=== PATIENT | male | born 1935 | race African-American/Black ===

== ENCOUNTER 2017-08-13 14:03 | Emergency (ER) | payer MEDICARE, OTHER, SELFPAY ==
[2017-08-13 14:05] VITALS: BP 215/93; PULSE 145; RESP 20; O2SAT 97
--- NOTE | 2017-08-13 14:14 | ED.ARRPALP ---
HPI - Arrhythmia/Palpitations General Chief Complaint: Arrhythmia/Palpitations Stated Complaint: RAPID HEART RATE Time Seen by Provider: 08/13/17 14:14 Source: patient and family Mode of arrival: ambulatory Limitations: no limitations History of Present Illness HPI narrative: Patient presents to the emergency department today from the [facility] when they noticed him to be in a rapid and irregular heart rhythm. He has no history of AFib and had a pacemaker placed 2 years ago. He is not anticoagulated. He is asymptomatic and does not even feel palpitations let alone chest pain or shortness of breath. He is not dizzy nor weak or lightheaded. He has a PICC line in place and was set to receive his 6th and final round of chemotherapy for prostate cancer MD complaint: rapid heart beat Onset (ago): unknown Duration: constant Severity: mild Associated symptoms: denies other symptoms Related Data Home Medications Medication Instructions Recorded Confirmed insulin glargine [Basaglar KwikPen 1 dose SQ DIRECTED #0 03/25/17 08/13/17 U-100 Insulin] aspirin 81 mg PO DAILY 08/13/17 08/13/17 carvedilol 3.125 mg PO DAILY 08/13/17 08/13/17 lisinopril 10 mg PO DAILY 08/13/17 08/13/17 metformin 500 mg PO DAILY 08/13/17 08/13/17 Previous Rx's Medication Instructions Recorded apixaban [Eliquis] 2.5 mg PO BID #30 tab 08/13/17 Allergies Allergy/AdvReac Type Severity Reaction Status Date / Time No Known Drug Allergies Allergy Verified 07/21/17 12:45 Review of Systems Review of Systems All systems reviewed & are unremarkable except as noted in HPI and below Constitutional Denies chills, Denies fever(s), Denies lethargy and Denies weakness Eyes Denies change in vision, Denies eye discharge, Denies irritation and Denies loss of vision ENT Ears, Nose, Mouth, and Throat: Denies change in voice, Denies neck pain and Denies sore throat Cardiovascular Denies chest pain, Denies irregular heart rhythm, Denies lightheadedness, Denies palpitations, Denies dyspnea, Denies dyspnea on exertion and Denies orthopnea Respiratory Denies cough, Denies dyspnea, Denies dyspnea on exertion and Denies wheezing Gastrointestinal Gastrointestinal: Denies abdominal pain, Denies change in bowel habits, Denies diarrhea, Denies nausea and Denies vomiting Genitourinary Denies hematuria, Denies flank pain, Denies urinary incontinence and Denies urinary urgency Musculoskeletal Denies neck pain Integumentary/Breasts Denies pruritus, Denies erythema, Denies rash and Denies wounds Neurologic Denies confusion, Denies loss of vision and Denies weakness Psychiatric Denies anxiety, Denies confusion, Denies depression, Denies homicidal ideation and Denies suicidal ideation Endocrine Denies palpitations Hematologic/Lymphatic Denies easy bruising Allergic/Immunologic Denies wheezing PFSH Medical History Atrial fibrillation (Acute) Diabetes (Acute) HTN (hypertension) (Acute) Social History Smoking Status: Never smoker Exam Narrative Exam Narrative: Pleasant 81-year-old male in no obvious distress Initial Vital Signs Initial Vital Signs: Vital Signs Pulse Rate 145 H 08/13/17 14:05 Respiratory Rate 20 08/13/17 14:05 Blood Pressure 215/93 H 08/13/17 14:05 Pulse Oximetry 97 08/13/17 14:05 Const General: cooperative and well developed Nutritional Appearance: well nourished Orientation: alert, awake, oriented x3 and not confused [facility] Head: normocephalic and atraumatic Ears: external ears normal and TM's normal bilaterally Nose: external nose normal and No nasal discharge Face and sinus: sinuses nontender, face symmetric, no sinus tenderness and No dry mucous membranes Mouth: oral mucosae normal and moist mucous membranes Teeth and gingiva: dentition normal Throat: tonsils normal and uvula midline Resp Effort & Inspection: normal respiratory effort, able to speak in complete sentences, no respiratory distress and no use of accessory muscles Auscultation: clear to auscultation bilaterally, no rales, no rhonchi and no wheezes Cardio Rate: tachycardic Rhythm: abnormal rhythm Heart Sounds: no click, no gallops, no murmurs and no rubs Pulses: normal peripheral pulses GI Inspection: non-distended Palpation: soft, no hepatosplenomegaly, No guarding, No pulsatile mass and No tender Auscultation: normal bowel sounds Back/Spine/Pelvis Back: No CVA tenderness Cervical Spine: cervical ROM normal and No pain with cervical ROM Thoracic/Lumbar Spine: thoracic and lumbar spine normal to inspection Neuro General: alert, oriented x3, gait normal and no focal motor deficits Speech: speech normal Course Orders Ordered: ED Orders 08/13/17 14:15 XR chest 1V Stat Basic Metabolic Panel Stat Complete Blood Count AUTO DIFF Stat Magnesium Stat Thyroid Stimulating Hormone Stat Troponin with CK Cardiac Panel Stat EKG-12 Lead Stat Discontinued Medications Carvedilol (Coreg) 6.25 mg PO NOW ONE Stop: 08/13/17 15:47 Last Admin: 08/13/17 15:59 Dose: 6.25 mg Diltiazem HCl (Cardizem) 10 mg IV NOW ONE Stop: 08/13/17 14:45 Last Admin: 08/13/17 14:54 Dose: 10 mg Sodium Chloride (Normal Saline 0.9%) 1,000 mls @ 150 mls/hr IV CONT SANDER Last Infusion: 08/13/17 16:02 Dose: 150 mls/hr Admin: 08/13/17 14:54 Dose: 150 mls/hr Reevaluation(s) Reevaluation #1: Patient remains asymptomatic. Cardizem 10 mg IV push has kept his heart rate in the 90s for about an hour now Time: 15:50 Consultations Consultation #1: Call to Cardiology at [facility]. I have discussed the case and they recommend increasing his beta-tong and adding Eliquis at 2.5 mg p.o. b.i.d. Time: 15:50 Vital Signs - 8 hr 08/13/17 14:05 08/13/17 15:06 08/13/17 15:30 Pulse Rate 145 H 94 H 42 L Respiratory Rate 20 22 18 Blood Pressure 215/93 H Blood Pressure [Right Arm] 151/61 H 140/63 H Pulse Oximetry 97 96 95 08/13/17 15:59 08/13/17 16:04 Pulse Rate 98 H 98 H Respiratory Rate 19 Blood Pressure 140/83 H 140/63 H Blood Pressure [Right Arm] Pulse Oximetry 97 MDM - Arrhythmia/Palpitations Differential Diagnosis Differential diagnosis: Likely palpitations, anxiety, sinus tachycardia, artial fibrillation and artial flutter Medical Records Attestation: I reviewed the patient's medical records. Lab Data Attestation: I reviewed the patient's lab results. Result diagrams: 08/13/17 14:15 08/13/17 14:15 Lab Results 08/13/17 08/13/17 08/13/17 Range/Units 14:15 14:15 14:15 WBC 8.7 (4.5-11.0) X10^3/uL RBC 4.03 L (4.5-5.9) X10^6/uL Hgb 10.4 L (13.5-17.5) g/dL Hct 32.1 L (41-53) % MCV 79.8 L (80-100) fL MCH 25.8 L (26-34) PG MCHC 32.3 (30-36) % RDW 17.9 H (11.6-14.8) % Plt Count 246 (150-400) X10^3/uL Neut % (Auto) 64.0 (50-75) % Lymph % (Auto) 21.7 L (25-40) % Kay % (Auto) 12.4 (3-14) % Eos % (Auto) 1.4 L (2-4) % Baso % (Auto) 0.5 (0-2) % Neut # (Auto) 5600 (3522-9216) /uL Sodium 137 (137-145) mmol/L Potassium 4.0 (3.4-5.1) mmol/L Chloride 99 (98-107) mmol/L Carbon Dioxide 25 (22-32) mmol/L BUN 22 H (9-20) mg/dL Creatinine 1.10 (0.66-1.25) mg/dL Estimated GFR > 60.0 (>60) mL/min BUN/Creatinine Ratio 20.0 (6-22) Glucose 221 H (80-110) mg/dL Calcium 9.3 (8.4-10.2) mg/dL Magnesium 1.7 (1.6-2.3) mg/dL Total Creatine Kinase 139 (55-170) U/L CK-MB (CK-2) 0.82 (<2.37) ng/mL CK-MB (CK-2) Rel Index 0.6 L (1.5-5.0) % Troponin I 0.014 (0.01-0.034) ng/mL TSH 2.04 (0.47-4.68) uIU/mL Imaging Data Chest x-ray: Attestation: I personally reviewed and interpreted this imaging study as follows: Radiologist's impression: PROCEDURE: XR CHEST 1V INDICATIONS: new onset Afib TECHNIQUE: One view of the chest was acquired. COMPARISON: None. FINDINGS: Surgical changes and devices: Pacemaking device and dual chamber leads normal. Lungs and pleura: No pleural effusions or pneumothorax. Lungs are clear. Mediastinum: Mediastinal contours appear normal. Heart size is normal. Bones and chest wall: No suspicious bony lesions. Overlying soft tissues appear unremarkable. IMPRESSION: Mildly reduced inspiratory volume, pacemaker appears normal, no edema found. Dictated by: Kyle Khoury M.D. on 08/13/2017 at 15:15 Approved by: Kyle Khoury M.D. on 08/13/2017 at 15:16 ECG Data Attestation: I personally reviewed and interpreted this ECG as follows: Prior ECG tracings: not available for review Interpretation: Rapid AFib with left bundle branch block and occasional pacing. Rate in the 150s MDM Narrative Medical decision making narrative: CHADS-VASc score or 4 but no anticoagulation despite known history of AFib LBBB. Discharge Plan Departure Patient Disposition: Home, Self-Care Clinical Impression: Atrial fibrillation Discharge Date/Time: 08/13/17 16:05 Interventions: ED Discharge Assessment Last Done: 08/13/17 16:04 Instructions: DI for Atrial Fibrillation Activity Restrictions/Additional Instructions: *You have been diagnosed with [ atrial fibrillation ] *What to do: *Take medications as directed. Also, please increase your carvedilol from 3.125 mg p.o. daily to 6.25 mg p.o. daily *Follow up with your primary care provider in 2-3 days *Return to ER if you should have any new, worsening or concerning symptoms Prescriptions: New apixaban [Eliquis] 2.5 mg tablet 2.5 mg PO BID Qty: 30 RF: 0 No Action insulin glargine [Basaglar KwikPen U-100 Insulin] 100 UNIT/1 ML insulin pen 1 dose SQ DIRECTED Qty: 0 RF: 0 aspirin 81 mg Tablet,Delayed Release (Dr/Ec) 81 mg PO DAILY RF: 0 carvedilol 3.125 mg Tablet 3.125 mg PO DAILY RF: 0 lisinopril 10 mg Tablet 10 mg PO DAILY RF: 0 metformin 500 mg Tablet Extended Release 24 Hr 500 mg PO DAILY RF: 0
[2017-08-13 14:36] LABS: Add Manual Diff / Slide Review NO; Basophils Percent Auto 0.5 % (0-2); Eosinophils Percent Auto 1.4 % (2-4); Hematocrit 32.1 % (41-53); Hemoglobin 10.4 g/dL (13.5-17.5); Lymphocytes Percent Auto 21.7 % (25-40); Mean Corpuscular HGB Conc 32.3 % (30-36); Mean Corpuscular Hemoglobin 25.8 PG (26-34); Mean Corpuscular Volume 79.8 fL (80-100); Monocytes Percent Auto 12.4 % (3-14); Neutrophils Absolute Auto 5600 /uL (3000-5900); Platelet Count 246 X10^3/uL (150-400); Red Blood Cell Count 4.03 X10^6/uL (4.5-5.9); Red Cell Distribution Width 17.9 % (11.6-14.8); White Blood Cell Count 8.7 X10^3/uL (4.5-11.0)
[2017-08-13 14:37] LABS: Blood Urea Nitrogen 22 mg/dL (9-20); Calcium 9.3 mg/dL (8.4-10.2); Carbon Dioxide 25 mmol/L (22-32); Chloride 99 mmol/L (98-107); Creatine Kinase 139 U/L (55-170); Estimated Glomerular Filt Rate > 60.0 mL/min (>60); Glucose 221 mg/dL (80-110); HEMOLYSIS < 15 (0-50); Magnesium 1.7 mg/dL (1.6-2.3); Sodium 137 mmol/L (137-145)
[2017-08-13 14:49] LABS: Troponin I 0.014 ng/mL (0.01-0.034)
[2017-08-13 14:52] LABS: CKMB % Relative Index 0.6 % (1.5-5.0); Creatine Kinase MB 0.82 ng/mL (<2.37)
[2017-08-13] MEDS: SODIUM CHLORIDE 0.9% 1,000 ML 150 ML IV (14:54)
[2017-08-13] MEDS: dilTIAZem 25 MG/5 ML SDV 10 MG IV (14:54)
[2017-08-13 15:06] VITALS: BP 151/61; PULSE 94; RESP 22; O2SAT 96
[2017-08-13 15:30] VITALS: BP 140/63; PULSE 42; RESP 18; O2SAT 95
--- NOTE | 2017-08-13 15:43 | PC.NURSE ---
Calls out to [facility] cardiology for pt info. Stable. HR from 150 to 94 after meds
[2017-08-13 15:59] VITALS: BP 140/83; PULSE 98
[2017-08-13] MEDS: CARVEDILOL 6.25 MG TABLET PO (15:59)
[2017-08-13 16:04] VITALS: BP 140/63; PULSE 98; RESP 19; O2SAT 97
--- NOTE | 2017-08-13 16:05 | PC.NURSE ---
PT and family understand dc inst./meds. Picc line flushed. PT states no heparin
[2017-08-13 16:32] LABS: Thyroid Stimulating Hormone 2.04 uIU/mL (0.47-4.68)
== END 2017-08-13 16:05 | disposition home or self-care (01) ==
PROVIDERS: Emergency Provider Emergency Medicine; PCP Family Medicine
DX: C61 Malignant neoplasm of prostate (principal); D64.9 Anemia, unspecified; I48.91 Unspecified atrial fibrillation
CPT/HCPCS: 36415; 36591; 71045; 80048; 80053; 82550; 82553; 83735; 84153; 84443; 84484; 85025; 93005; 96361; 96374; 99215; 99283; 99285

== ENCOUNTER → 2017-08-20 14:30 | Outpatient (CLI) | payer MEDICARE, OTHER, SELFPAY ==
--- NOTE | 2017-08-20 | DI.US.S_ITS ---
PROCEDURE: US PERIPH VENOUS UP EXTREM RT INDICATIONS: RIGHT ARM EDEMA TECHNIQUE: Real-time imaging, as well as color and pulse Doppler interrogation, was performed of the right upper extremity deep veins from the inferior neck to the antecubital fossa. COMPARISON: None. FINDINGS: Partial thrombus is visualized within the right subclavian, axillary and brachial vein. The internal jugular, cephalic and basilic veins are patent. Right PICC also is noted. IMPRESSION: Positive for DVT with partial occlusive thrombus involving the right subclavian, axillary and brachial veins. Savannah Morin given results by the roller printing supervisor at 1518 hrs. 08/20/17 Dictated by: Arley WHALEN Interpreted: Ethan Mcknight MD on 08/20/2017 at 15:29 Approved by: Ethan Mcknight M.D. on 08/20/2017 at 17:12
== END ==
PROVIDERS: PCP Family Medicine; Visit Provider Nurse Practitioner Gerontology
DX: I82.621 Acute embolism and thrombosis of deep veins of right upper extremity (principal); C61 Malignant neoplasm of prostate; M79.89 Other specified soft tissue disorders; D50.9 Iron deficiency anemia, unspecified
CPT/HCPCS: 93971; 96365; 96402; J1756; J9217

== ENCOUNTER → 2017-09-03 | Outpatient (CLI) | payer MEDICARE, OTHER, SELFPAY ==
--- NOTE | 2017-09-03 09:24 | DI.NM.S_ITS ---
PROCEDURE: [place] BONE SCAN WHOLE BODY RADIOPHARMACEUTICAL: 22.3 mCi Tc-99m MDP IV. INDICATIONS: PROSTATE CANCER TECHNIQUE: Delayed whole-body scintigrams were obtained approximately 3-4 hours after intravenous injection of radiotracer. COMPARISON: [facility], CT, ABDOMEN/PELVIS WITH CONTRAST, 03/25/2017, 19:33. [facility], CT, CT ABDOMEN W CON, 09/03/2017, 10:12. [place], [place], BONE SCAN WHOLE BODY, 04/13/2017, 13:04. FINDINGS: There are multiple foci of increased activity involving the left skull base, sternum, scapulae bilaterally, cervical, thoracic and lumbar spine, sacrum, multiple ribs bilaterally, bony pelvis bilaterally, consistent with osseous metastases. Osseous lesions are overall stable compared with last exam on 03/25/2017. There are foci of increased periarticular activity involving shoulders bilaterally, elbows bilaterally, wrists bilaterally, hips bilaterally, knees bilaterally, ankles and feet bilaterally, compatible with degenerative/arthritic changes. There are 2 kidneys, normal in size and position. There is normal soft tissue uptake. IMPRESSION: Widespread osseous metastatic disease, overall stable compared to the last exam. Dictated by: Ethan Mcknight M.D. on 09/03/2017 at 15:26 Approved by: Ethan Mcknight M.D. on 09/04/2017 at 9:38
--- NOTE | 2017-09-03 10:11 | DI.CT.S_ITS ---
PROCEDURE: CT ABDOMEN W CON INDICATIONS: PROSTATE CANCER TECHNIQUE: After the administration of oral and intravenous contrast, 5 mm thick sections acquired from the diaphragms to the iliac crests. 5 mm thick coronal and sagittal reformats were acquired. For radiation dose reduction, the following was used: automated exposure control, adjustment of mA and/or kV according to patient size. COMPARISON: [facility], CT, ABDOMEN/PELVIS WITH CONTRAST, 03/25/2017, 19:33. [facility], [place], BONE SCAN WHOLE BODY, 04/13/2017, 13:04. [facility], [place], XR CHEST 1V, 08/13/2017, 14:29. FINDINGS: Image quality: Excellent. Lung bases: AICD partially imaged. Lung bases show linear scarring/atelectasis, right greater than left. No pulmonary nodules seen. Heart size is normal. Solid organs: Liver is normal in size and enhancement. There are 3 or 4 hypodensities in the liver, right and left lobes, unchanged. Gallbladder appears normal. Biliary system is non dilated. Pancreas enhances normally. Spleen is normal in size and enhancement. No adrenal nodules. Kidneys are normal in size, without hydronephrosis. Peritoneum and bowel: Contrast enhanced bowel loops appear normal in caliber. No free fluid or air. Nodes and vessels: No retroperitoneal or mesenteric adenopathy by size criteria. Atheromatous aorta and inferior vena cava are normal in size. Bones: Innumerable foci of mixed lytic and sclerotic lesions are present throughout the spine and visualized portion of the pelvis. No vertebral body compression fractures. Miscellaneous: No ventral hernias. IMPRESSION: 1. Widespread metastatic bone disease from known prostate cancer, compatible with prior bone imaging, repeat nuclear bone scan scheduled. 2. Small hypodense lesions within the right and left lobes of liver are unchanged in remain indeterminate, most likely hepatic cysts or hemangiomas. No other soft tissue or marie findings to suspect additional metastatic disease. 3. Permanent transvenous pacemaker/defibrillator. 4. Atheromatous vascular disease. Dictated by: Arnol Cardenas M.D. on 09/03/2017 at 10:55 Approved by: Arnol Cardenas M.D. on 09/03/2017 at 11:05
== END ==
LOC: CT 09:23
PROVIDERS: PCP Family Medicine; Visit Provider Internal Medicine Hematology & Oncology
DX: C61 Malignant neoplasm of prostate (principal); Z53.9 Procedure and treatment not carried out, unspecified reason
CPT/HCPCS: 74160; 78306; A9503; Q9967

== ENCOUNTER 2017-09-17 15:02 | Day surgery (SDC) | payer MEDICARE, OTHER, SELFPAY ==
[2017-09-11 14:15] VITALS: BMI 19.5
--- NOTE | 2017-09-17 | DI.RAD.S_ITS ---
PROCEDURE: XR CHEST 1V INDICATIONS: PORT A CATH PLACEMENT TECHNIQUE: One view of the chest was acquired. COMPARISON: [facility], [place], XR CHEST 1V, 08/13/2017, 14:29. FINDINGS: Surgical changes and devices: Right chest wall Port-A-Cath is noted. Tip of Port-A-Cath projects over the mid SVC. AICD is stable. Lungs and pleura: No pleural effusions or pneumothorax. Lungs are clear. Mediastinum: Mediastinal contours appear normal. Heart size is normal. Bones and chest wall: No suspicious bony lesions. Overlying soft tissues appear unremarkable. IMPRESSION: Status post placement of right chest wall Port-A-Cath. Dictated by: Jennifer Balbuena MD, PhD on 09/17/2017 at 18:24 Approved by: Jennifer Balbuena MD, PhD on 09/17/2017 at 18:24
--- NOTE | 2017-09-17 15:18 | PM.PREOP ---
Pre-operative Note Interval Note Pre-op Check: History & Physical Reviewed by Physician and Exam Performed
[2017-09-17 15:25] VITALS: BMI 19.5
[2017-09-17] MEDS: LACTATED RINGERS 1,000 ML 42 ML IV (15:25)
[2017-09-17 15:50] VITALS: BMI 19.5
[2017-09-17] MEDS: CEFAZOLIN 2 GM/100 ML FROZ.PIGGY IV (17:08)
--- NOTE | 2017-09-17 17:28 | SUR.OPER ---
Supine on padded OR bed, head on gel donut, right arm padded and tucked at side, left arm secured on 90 degree padded arm rest. legs uncrossed, safety belt at thigh, tape over blanket over lower legs .
[2017-09-17 17:58] VITALS: BP 132/78; PULSE 87; RESP 16; TEMP 36.4; O2SAT 94
[2017-09-17 18:03] VITALS: BP 136/83; PULSE 86; RESP 16; O2SAT 94
[2017-09-17] MEDS: HEPARIN 5,000 UNIT, SODIUM CHLORIDE 0.9% 50 ML IV (18:03)
[2017-09-17 18:08] VITALS: BP 167/90; PULSE 83; RESP 16; O2SAT 94
[2017-09-17] MEDS: LIDOCAINE 1% 20 ML INJ INJ (18:08)
--- NOTE | 2017-09-17 18:13 | PM.OP.1 ---
Operative Date/Time/Diagnoses - Date of procedure: 09/17/17 Time of procedure: 18:00 Pre-op diagnosis: Prostate cancer Post-op diagnosis: same Procedure & Clinicians Procedure: Placement of right subclavian Port-A-Cath Same procedure as scheduled: Yes Indications: Need for IV access for chemotherapy Surgeon: Joselito Raines Click Yes if Unassisted: Yes Anesthesia Type: MAC +/- Operative Notes Findings: Tip in the SVC. No evidence of pneumothorax. Closure Type: primary Specimen(s): none sent Implants & Drains: Low-profile Port-A-Cath Estimated Blood Loss (mL): 5 Blood products transfused: none Procedure in detail: The patient was placed supine on the operating room table and underwent mac anesthesia. He was prepped and draped in the usual fashion. Local anesthetic was infiltrated in a field block fashion beneath the right clavicle. Transverse incision was made in needle inserted on the 2nd attempt into the subclavian vein. Guidewire was passed and the needle removed. Under fluoroscopy the wire was noted to be in the neck. With the manipulation we were able to get it to go into the superior vena cava. The port and catheter were connected and tapered to appropriate length. The port was placed in the pocket that had been created in the infraclavicular fossa. A dilator and introducer were passed over the guidewire. The guidewire and the dilator were removed leaving the introducer in place. The catheter was passed through the introducer which was then peeled away leaving the catheter in the SVC. The port was secured to the chest wall with 2 0 silk. It was then aspirated and flushed with heparinized saline. The subcu was closed with interrupted 3 0 Polysorb and the skin was closed running for Polysorb subcuticular stitch and Dermabond. Dressing was applied the patient was taken to the recovery area in good condition. A chest x-ray performed there revealed that the tip was in the SVC and there is no evidence of pneumothorax. Complications: none Condition: stable Disposition: PACU
[2017-09-17 18:24] VITALS: BP 168/83; PULSE 85; RESP 16; TEMP 36.2; O2SAT 93
[2017-09-17 18:35] VITALS: BP 168/87; PULSE 86; RESP 16; O2SAT 96
== END 2017-09-17 18:47 | disposition home or self-care (01) ==
PROVIDERS: PCP Family Medicine; Visit Provider Specialist
PROC: (CPT 36561; principal; 2017-09-17 14:30)
DX: C61 Malignant neoplasm of prostate (principal); Z45.2 Encounter for adjustment and management of vascular access device; Z95.0 Presence of cardiac pacemaker; I44.7 Left bundle-branch block, unspecified; I48.91 Unspecified atrial fibrillation; N18.3 Chronic kidney disease, stage 3 (moderate); I12.9 Hypertensive chronic kidney disease with stage 1 through stage 4 chronic kidney disease, or unspecified chronic kidney disease; E78.00 Pure hypercholesterolemia, unspecified; I48.0 Paroxysmal atrial fibrillation; I50.22 Chronic systolic (congestive) heart failure
CPT/HCPCS: 36561; 71045; 76000; C1788; J0690; J1644; J2704

== ENCOUNTER → 2017-12-03 09:21 | Outpatient (CLI) | payer MEDICARE, OTHER, SELFPAY ==
--- NOTE | 2017-12-03 09:24 | DI.NM.S_ITS ---
PROCEDURE: [place] BONE SCAN WHOLE BODY RADIOPHARMACEUTICAL: 21.2 mCi Tc-99m MDP IV. INDICATIONS: PROSTATE CANCER TECHNIQUE: Delayed whole-body scintigrams were obtained approximately 3-4 hours after intravenous injection of radiotracer. Anterior and posterior views were acquired from vertex to feet. COMPARISON: [facility], CT, CT CHEST ABD PEL W CON, 12/03/2017, 10:32. [place], [place], BONE SCAN WHOLE BODY, 04/13/2017, 13:04. [place], [place], [place] BONE SCAN WHOLE BODY, 09/03/2017, 13:22. FINDINGS: Numerous foci of abnormal radiotracer uptake are seen, particularly involving the ribs, which are greater on the right posteriorly than elsewhere. Abnormal foci of radiotracer uptake also be seen within the L3 and L5 vertebral bodies. Abnormal uptake can be seen within the sternum and the thoracic spine. Abnormal foci are also seen within the scapulas. Abnormal radiotracer uptake is seen within the pelvis, particularly the medial iliac wings and more prominent on the right than on the left. More subtle foci can be seen within the cervical spine and skull base. These abnormal foci of radiotracer uptake are more prominent than on the prior examination dated 09/03/17. Mild, symmetric uptake can be seen within several joints, which is attributed to age-appropriate degenerative change. No abnormal soft tissue uptake is seen. The kidneys demonstrate normal positions. IMPRESSION: Interval progression of this patient's previously seen bony metastatic disease. Dictated by: Gael Lopez M.D. on 12/03/2017 at 14:50 Approved by: Gael Lopez M.D. on 12/03/2017 at 14:53
--- NOTE | 2017-12-03 10:06 | DI.CT.S_ITS ---
PROCEDURE: CT CHEST ABD PEL W CON INDICATIONS: Prostate cancer surveillance TECHNIQUE: After the administration of oral and intravenous contrast, 5 mm thick sections acquired from the lung apices to the symphysis. 5 mm coronal and sagittal reformats were performed, with additional 7 mm coronal MIP reformats through the lungs. For radiation dose reduction, the following was used: automated exposure control, adjustment of mA and/or kV according to patient size. COMPARISON: [facility], CT, ABDOMEN/PELVIS WITH CONTRAST, 03/25/2017, 19:33. [facility], CT, CT ABDOMEN W CON, 09/03/2017, 10:12. [place], [place] BONE SCAN WHOLE BODY, 09/03/2017, 13:22. [place] BONE SCAN WHOLE BODY, 12/03/2017, 12:39. FINDINGS: Image quality: There is streak artifact from patient's left chest wall AICD.. CHEST: Lungs and pleura: There is linear scarring redemonstrated in the lung bases. There are 2 small nonspecific nodules medially in the left upper lobe measuring approximate 2 mm on series 3 image 17 and 20. No pleural effusions or pneumothorax. Central and peripheral airways appear patent and normal in caliber. Mediastinum: Heart size is normal. There is a small pericardial effusion anteriorly. A left chest wall AICD is redemonstrated with leads extending to the right atrium, right ventricle, and coronary sinus. There is a right chest wall subclavian Port-A-Cath with the tip extending into the superior vena cava. No mediastinal or hilar adenopathy by size criteria. Thoracic aorta and central pulmonary arteries are normal in size. Esophagus is normal in caliber. No hiatal hernia. Chest wall: No axillary or supraclavicular adenopathy by size criteria. ABDOMEN: Solid organs: A few scattered hypodense foci are redemonstrated within the liver, measuring up to 0.8 cm in the posterior right hepatic lobe. These appear unchanged compared to the prior studies and likely represent small cysts or hemangiomas. Biliary system is non dilated. Pancreas enhances normally. Spleen is normal in size and enhancement. No adrenal nodules. Kidneys demonstrate no hydronephrosis. Peritoneum and bowel: Bowel loops demonstrate normal wall thickness and caliber. No free fluid or air. Nodes and vessels: No retroperitoneal or mesenteric adenopathy by size criteria. Aorta and inferior vena cava are normal in size. Miscellaneous: No ventral hernias. PELVIS: Genitourinary: Bladder wall thickness is normal. There is heterogeneous enlargement of the prostate redemonstrated. No discrete extraprostatic mass invasion identified. Miscellaneous: No inguinal adenopathy. There is a small fat containing right inguinal hernia. Bones: There are diffuse sclerotic lesions are demonstrated within the visualized osseous structures consistent with blastic metastatic disease. These appear progressively increased over time compared to the prior studies. No vertebral body compression fractures. IMPRESSION: 1. Diffuse sclerotic osseous lesions consistent blastic metastatic disease appear progressively increased compared to the prior studies. Recommend correlation with bone scan study. 2. Small anterior pericardial effusion appears similar to the prior study of 09/03/17. 3. 2 small left upper lobe pulmonary nodules measuring up to 3 mm are nonspecific. Recommend attention on followup studies. Dictated by: Jerry Coley M.D. on 12/03/2017 at 13:13 Approved by: Jerry Coley M.D. on 12/03/2017 at 13:40
== END ==
PROVIDERS: PCP Family Medicine; Visit Provider Internal Medicine Hematology & Oncology
DX: C61 Malignant neoplasm of prostate (principal); C79.51 Secondary malignant neoplasm of bone; R91.8 Other nonspecific abnormal finding of lung field
CPT/HCPCS: 71260; 74177; 78306; A9503; Q9967

== ENCOUNTER → 2018-01-05 11:28 | Outpatient (CLI) | payer MEDICARE, OTHER, SELFPAY ==
--- NOTE | 2018-01-05 11:30 | DI.RAD.S_ITS ---
PROCEDURE: XR LUMBAR SPINE 2-3V INDICATIONS: pain TECHNIQUE: 3 views of the lumbar spine were acquired. COMPARISON: [facility], CT, CT CHEST ABD PEL W CON, 12/03/2017, 10:32. [facility], [place], [place] BONE SCAN WHOLE BODY, 12/03/2017, 12:39. FINDINGS: Bones: 5 [id number] vertebrae are present. There is normal bony alignment. No vertebral body compression fractures. No definite interval worsening of osteoblastic metastatic disease over the low thoracic and lumbosacral spine, and visualized portions of the medial pelvis. This is with reference to the comparison CT scan 12/03/17. Soft tissues: Overlying bowel gas pattern is normal. No suspicious soft tissue calcifications. 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 The patient has a history of prostate carcinoma. No definite interval worsening by plain film appearance but the nuclear medicine bone scan from November compared to that from August had shown worsening disease. No pathologic compression fractures are identified. Dictated by: Kyle Khoury M.D. on 01/05/2018 at 12:02 Approved by: Kyle Khoury M.D. on 01/05/2018 at 12:05
--- NOTE | 2018-01-05 11:30 | DI.RAD.S_ITS ---
PROCEDURE: XR THORACIC SPINE 3V INDICATIONS: pain TECHNIQUE: 3 views of the thoracic spine were acquired. COMPARISON: [facility], [place], [place] BONE SCAN WHOLE BODY, 12/03/2017, 12:39. [facility], [place], XR CHEST 1V, 09/17/2017, 18:04. [facility], [place], [place] BONE SCAN WHOLE BODY, 09/03/2017, 13:22. [facility], CT, CT CHEST ABD PEL W CON, 12/03/2017, 10:32. FINDINGS: Bones: No fractures or dislocations. 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 12 pairs of ribs are noted, and appear intact where visualized. Soft tissues: No paravertebral stripe thickening. IMPRESSION: No definite plain film worsening of osteoblastic metastatic disease with reference to the CT scan from November of this year. No compression fractures found. Dictated by: Kyle Khoury M.D. on 01/05/2018 at 12:05 Approved by: Kyle Khoury M.D. on 01/05/2018 at 12:06
== END ==
PROVIDERS: PCP Family Medicine
DX: M54.9 Dorsalgia, unspecified (principal); C61 Malignant neoplasm of prostate
CPT/HCPCS: 72072; 72100

== ENCOUNTER → 2018-02-02 12:21 | Outpatient (CLI) | payer MEDICARE, OTHER, SELFPAY | PROVIDERS: PCP Family Medicine | DX: C61 Malignant neoplasm of prostate (principal); Z53.9 Procedure and treatment not carried out, unspecified reason ==

== ENCOUNTER 2018-02-03 09:15 | Emergency (ER) | payer MEDICARE, OTHER, SELFPAY ==
[2018-02-03 09:28] VITALS: BP 181/94; PULSE 106; RESP 21; TEMP 36.5; O2SAT 97; BMI 23.6
--- NOTE | 2018-02-03 09:32 | ED.BACK ---
HPI - Back Pain/Injury General Chief Complaint: Back Pain/Injury Stated Complaint: EXTREME INTERIOR PAIN, HAS CANCER STAGE 4 Time Seen by Provider: 02/03/18 09:32 Source: patient Mode of arrival: ambulatory Limitations: no limitations History of Present Illness HPI Narrative: 82-year-old male with a history of prostate cancer which he states is ?stage for ?is currently on oral chemotherapy here for evaluation left flank pain. States that it occurred last evening. No trauma. Has been consistent since then. Does have pain medication at home provided by his oncologist any take 2 of those medications without much improvement. No problems breathing. No urinary symptoms. No history of kidney stones. No skin changes. Related Data Home Medications Medication Instructions Recorded Confirmed insulin glargine [Basaglar KwikPen 1 dose SQ DIRECTED #0 03/25/17 01/19/18 U-100 Insulin] lisinopril 10 mg PO DAILY 08/13/17 01/19/18 metformin 500 mg PO DAILY 08/13/17 01/19/18 atorvastatin 40 mg PO BEDTIME 09/14/17 01/19/18 carvedilol 3.125 mg PO BID 09/14/17 01/19/18 insulin glargine [Lantus U-100 25 unit SUB-Q BEDTIME 09/14/17 01/19/18 Insulin] losartan 50 mg PO DAILY 09/14/17 01/19/18 tamsulosin [Flomax] 0.4 mg PO DAILY 09/25/17 01/19/18 enzalutamide [Xtandi] 160 mg PO DAILY 12/22/17 01/19/18 aspirin [Aspir-81] 81 mg PO DAILY 01/05/18 01/19/18 Previous Rx's Medication Instructions Recorded apixaban 2.5 mg PO BID #120 tab 12/22/17 oxycodone-acetaminophen [Percocet] 1 tab PO Q4-6H PRN #60 tab 02/03/18 Allergies Allergy/AdvReac Type Severity Reaction Status Date / Time No Known Drug Allergies Allergy Verified 09/17/17 15:22 Review of Systems Constitutional Denies fever(s) ENT Ears, Nose, Mouth, and Throat: Denies vertigo Cardiovascular Denies chest pain, Denies syncope and Denies dyspnea Respiratory Denies dyspnea Gastrointestinal Gastrointestinal: Reports abdominal pain (Left-sided) and Denies change in bowel habits Genitourinary Denies hematuria, Denies genital pain and Denies dysuria Musculoskeletal Reports back pain (Left side of his back), Denies myalgias and Denies arthralgias Integumentary/Breasts Denies lesions and Denies rash Neurologic Denies confusion, Denies vertigo and Denies syncope Psychiatric Denies confusion Hematologic/Lymphatic Denies easy bleeding and Denies easy bruising PFSH Surgical History S/P PICC central line placement (Resolved) History of back surgery (Inactive) Hx of left inguinal hernia repair (Inactive) Social History household members: spouse Smoking Status: Never smoker Exam Initial Vital Signs Initial Vital Signs: Vital Signs Temperature 97.7 F 02/03/18 09:28 Pulse Rate 106 H 02/03/18 09:28 Respiratory Rate 21 02/03/18 09:28 Blood Pressure 181/94 H 02/03/18 09:28 Pulse Oximetry 97 02/03/18 09:28 Const General: cooperative and well developed Nutritional Appearance: well nourished Orientation: alert, awake, oriented x3 and not confused HENMT Head: normal to inspection and normocephalic Chest Chest: normal inspection of the chest and normal palpation of entire chest wall Resp Effort & Inspection: normal respiratory effort Auscultation: clear to auscultation bilaterally Cardio Rhythm: regular rhythm Pulses: radial pulses present GI Inspection: non-distended Palpation: soft, No firm and tender (Left-sided) General: CVA tenderness (Left) Back/Spine/Pelvis Back: CVA tenderness left Skin Lesions: no lesions Rashes: no rashes Neuro General: alert, awake and oriented x3 Extrem General: normal to inspection and capillary refill normal Psych Appearance: grossly normal and well kempt Course Orders Ordered: ED Orders 02/03/18 10:23 CT kidney ureter bladder (KUB) Stat 02/03/18 10:45 Basic Metabolic Panel Stat Complete Blood Count AUTO DIFF Stat Discontinued Medications Sodium Chloride (Normal Saline 0.9%) 1,000 mls @ 150 mls/hr IV CONT SANDER Last Infusion: 02/03/18 12:03 Dose: 150 mls/hr Admin: 02/03/18 10:41 Dose: 150 mls/hr Morphine Sulfate (Morphine) 4 mg IV NOW ONE Stop: 02/03/18 10:02 Last Admin: 02/03/18 10:40 Dose: 4 mg Vital Signs - 8 hr 02/03/18 09:28 02/03/18 10:00 02/03/18 11:00 Temperature 97.7 F Pulse Rate 106 H 100 H 95 H Respiratory Rate 21 21 21 Blood Pressure 181/94 H Blood Pressure [Left Arm] 172/82 H 151/74 H Pulse Oximetry 97 99 02/03/18 11:38 Temperature Pulse Rate 94 H Respiratory Rate 20 Blood Pressure Blood Pressure [Left Arm] 156/78 H Pulse Oximetry MDM - Back Pain/Injury Lab Data Attestation: I reviewed the patient's lab results. Result diagrams: 02/03/18 10:45 02/03/18 10:45 Lab Results 02/03/18 02/03/18 Range/Units 10:45 10:45 WBC 15.0 H (4.5-11.0) X10^3/uL RBC 3.91 L (4.5-5.9) X10^6/uL Hgb 9.3 L (13.5-17.5) g/dL Hct 29.9 L (41-53) % MCV 76.5 L (80-100) fL MCH 23.8 L (26-34) PG MCHC 31.1 (30-36) % RDW 20.2 H (11.6-14.8) % Plt Count 360 (150-400) X10^3/uL Neut % (Auto) 82.0 H (50-75) % Lymph % (Auto) 7.3 L (25-40) % Johnston % (Auto) 7.6 (3-14) % Eos % (Auto) 2.0 (2-4) % Baso % (Auto) 1.1 (0-2) % Neut # (Auto) 37165 H (4227-0788) /uL RBC Morphology Not Reportable Polychromasia 1+ H Anisocytosis 1+ H Sodium 136 L (137-145) mmol/L Potassium 4.8 (3.4-5.1) mmol/L Chloride 100 (98-107) mmol/L Carbon Dioxide 27 (22-32) mmol/L BUN 25 H (9-20) mg/dL Creatinine 0.90 (0.66-1.25) mg/dL Estimated GFR > 60.0 (>60) mL/min BUN/Creatinine Ratio 27.8 H (6-22) Glucose 273 H (80-110) mg/dL Calcium 8.5 (8.4-10.2) mg/dL Point of Care Testing Glucose POC [address] scan - abdomen: Radiologist's impression: PROCEDURE: CT KIDNEY URETER BLADDER (KUB) INDICATIONS: Left-sided flank pain concern for stone TECHNIQUE: Noncontrast 5 mm thick sections acquired from the diaphragms to the symphysis. 5 mm thick coronal and sagittal reformats were then performed. For radiation dose reduction, the following was used: automated exposure control, adjustment of mA and/or kV according to patient size. COMPARISON: [facility], CT, CT CHEST ABD PEL W CON, 12/03/2017, 10:32. FINDINGS: Image quality: Excellent. Lung bases: Linear areas of interstitial thickening within the right base are unchanged. There is minimal appearance of left basilar opacity, new compared to prior exam. Urinary system: Both kidneys are normal in size. No kidney stones. No hydronephrosis or perinephric fat stranding. Both ureters appear non-dilated throughout their expected courses. Bladder wall thickness is normal; no calcified bladder stones. The prostate gland is enlarged, projecting into the posterior inferior bladder. Other solid organs: Liver is normal in size. Gallbladder is unremarkable. Pancreas is normal in contours. Spleen is normal in size. No adrenal nodules. Peritoneum and bowel: Unenhanced bowel loops demonstrate normal wall thickness and caliber. No free fluid or air. Moderate stool is present within the right and transverse colon. Nodes and vessels: No retroperitoneal or mesenteric adenopathy by size criteria. Aorta and inferior vena cava are normal in caliber. Abdominal wall: No ventral hernias. Pelvis: No free pelvic fluid. Fat containing right inguinal hernia. Bones: Diffuse sclerotic lesions are identified within the visualized osseous structures. There is an unchanged appearance of probable pathologic nondisplaced fracture of the right L5 transverse process. There is a questionable nondisplaced lucency within the left lateral eighth rib, appearing new. No vertebral body compression fractures. IMPRESSION: 1. No visualized liver or ureterolithiasis. 2. Diffuse sclerotic osseous changes consistent with known metastatic disease. There is a nondisplaced lucency within the left lateral eighth rib appearing new suspicious for rib fracture. 3. Airspace opacity are noted within the left base, possibly related to atelectasis. Developing airspace disease such as pneumonia cannot be excluded. Dictated by: Carolann Saldivar M.D. on 02/03/2018 at 10:27 Approved by: Carolann Saldivar M.D. on 02/03/2018 at 10:51 [facility] Narrative Medical decision making narrative: Patient exam is not consistent with pneumonia. He is tender over the left lower ribs which is consistent with the lucency that is seen on the CT scan along the 8th rib. The abdomen pelvis CT scan was initially ordered secondary to concerns for his symptoms being result of renal colic. There is no signs of this. He does have an elevated white blood cell count however he is on chemotherapy. No skin changes concerning for zoster. I do feel that after this finding on the CT scan and correlating this with the source of his symptoms on his exam I feel that this fracture is most likely a result of his symptoms today. He has no signs of trauma. Would be concern for metastasis in this area he has known bone metastasis to other areas. I did discuss this with him. He does have pain medication at home. We did discuss the importance of him controlling his pain to the point where he could take deep breath. We did discuss return precautions to include signs of fever or worsening pain. His family was at bedside for this discussion. They all expressed understanding and agreement with this plan. Discharge Plan Departure Patient Disposition: Home Clinical Impression: Fracture of rib of left side, Anemia, Leukocytosis Discharge Date/Time: 02/03/18 11:50 Interventions: ED Discharge Assessment Last Done: 02/03/18 12:09 Instructions: DI for Rib Fracture Activity Restrictions/Additional Instructions: You can take the pain medication that you have at home for any discomfort. I would recommend you contact your oncologist to discuss the symptoms today. Return to the emergency department for any fevers, worsening pain, problems breathing, or any other concerning symptoms Prescriptions: Continue oxycodone-acetaminophen [Percocet] 5-325 mg Tablet 1 tab PO Q4-6H PRN (Reason: cancer pain) Qty: 60 RF: 0 No Action insulin glargine [Basaglar KwikPen U-100 Insulin] 100 UNIT/1 ML insulin pen 1 dose SQ DIRECTED Qty: 0 RF: 0 losartan 50 mg Tablet 50 mg PO DAILY RF: 0 atorvastatin 40 mg Tablet 40 mg PO BEDTIME RF: 0 carvedilol 25 mg Tablet 3.125 mg PO BID RF: 0 insulin glargine [Lantus U-100 Insulin] 100 unit/mL Solution 25 unit SUB-Q BEDTIME RF: 0 tamsulosin [Flomax] 0.4 mg Capsule,Extended Release 24hr 0.4 mg PO DAILY RF: 0 enzalutamide [Xtandi] 40 mg Capsule 160 mg PO DAILY RF: 0 apixaban 2.5 mg Tablet 2.5 mg PO BID Qty: 120 RF: 0 aspirin [Aspir-81] 81 mg Tablet,Delayed Release (Dr/Ec) 81 mg PO DAILY RF: 0 lisinopril 10 mg Tablet 10 mg PO DAILY RF: 0 metformin 500 mg Tablet Extended Release 24 Hr 500 mg PO DAILY RF: 0
[2018-02-03 10:00] VITALS: BP 172/82; PULSE 100; RESP 21; O2SAT 99
--- NOTE | 2018-02-03 10:23 | DI.CT.S_ITS ---
PROCEDURE: CT KIDNEY URETER BLADDER (KUB) INDICATIONS: Left-sided flank pain concern for stone TECHNIQUE: Noncontrast 5 mm thick sections acquired from the diaphragms to the symphysis. 5 mm thick coronal and sagittal reformats were then performed. For radiation dose reduction, the following was used: automated exposure control, adjustment of mA and/or kV according to patient size. COMPARISON: [facility], CT, CT CHEST ABD PEL W CON, 12/03/2017, 10:32. FINDINGS: Image quality: Excellent. Lung bases: Linear areas of interstitial thickening within the right base are unchanged. There is minimal appearance of left basilar opacity, new compared to prior exam. Urinary system: Both kidneys are normal in size. No kidney stones. No hydronephrosis or perinephric fat stranding. Both ureters appear non-dilated throughout their expected courses. Bladder wall thickness is normal; no calcified bladder stones. The prostate gland is enlarged, projecting into the posterior inferior bladder. Other solid organs: Liver is normal in size. Gallbladder is unremarkable. Pancreas is normal in contours. Spleen is normal in size. No adrenal nodules. Peritoneum and bowel: Unenhanced bowel loops demonstrate normal wall thickness and caliber. No free fluid or air. Moderate stool is present within the right and transverse colon. Nodes and vessels: No retroperitoneal or mesenteric adenopathy by size criteria. Aorta and inferior vena cava are normal in caliber. Abdominal wall: No ventral hernias. Pelvis: No free pelvic fluid. Fat containing right inguinal hernia. Bones: Diffuse sclerotic lesions are identified within the visualized osseous structures. There is an unchanged appearance of probable pathologic nondisplaced fracture of the right L5 transverse process. There is a questionable nondisplaced lucency within the left lateral eighth rib, appearing new. No vertebral body compression fractures. IMPRESSION: 1. No visualized liver or ureterolithiasis. 2. Diffuse sclerotic osseous changes consistent with known metastatic disease. There is a nondisplaced lucency within the left lateral eighth rib appearing new suspicious for rib fracture. 3. Airspace opacity are noted within the left base, possibly related to atelectasis. Developing airspace disease such as pneumonia cannot be excluded. Dictated by: Carolann Saldivar M.D. on 02/03/2018 at 10:27 Approved by: Carolann Saldivar M.D. on 02/03/2018 at 10:51
[2018-02-03] MEDS: MORPHINE 4 MG/ML INJ IV (10:40)
[2018-02-03] MEDS: SODIUM CHLORIDE 0.9% 1,000 ML 150 ML IV (10:41)
[2018-02-03 10:54] LABS: Add Manual Diff / Slide Review NO; Basophils Percent Auto 1.1 % (0-2); Hematocrit 29.9 % (41-53); Hemoglobin 9.3 g/dL (13.5-17.5); Lymphocytes Percent Auto 7.3 % (25-40); Mean Corpuscular HGB Conc 31.1 % (30-36); Mean Corpuscular Hemoglobin 23.8 PG (26-34); Mean Corpuscular Volume 76.5 fL (80-100); Monocytes Percent Auto 7.6 % (3-14); Neutrophils Absolute Auto 12300 /uL (3000-5900); Platelet Count 360 X10^3/uL (150-400); Red Blood Cell Count 3.91 X10^6/uL (4.5-5.9); Red Cell Distribution Width 20.2 % (11.6-14.8)
[2018-02-03 11:00] VITALS: BP 151/74; PULSE 95; RESP 21
[2018-02-03 11:10] LABS: BUN Creatinine Ratio 27.8 (6-22); Blood Urea Nitrogen 25 mg/dL (9-20); Calcium 8.5 mg/dL (8.4-10.2); Carbon Dioxide 27 mmol/L (22-32); Chloride 100 mmol/L (98-107); Estimated Glomerular Filt Rate > 60.0 mL/min (>60); Glucose 273 mg/dL (80-110); HEMOLYSIS < 15 (0-50); Potassium 4.8 mmol/L (3.4-5.1); Sodium 136 mmol/L (137-145)
[2018-02-03 11:24] LABS: Polychromasia 1+
[2018-02-03 11:25] LABS: Anisocytosis 1+
--- NOTE | 2018-02-03 11:36 | PC.NURSE ---
Pt has hx of stage 4 prostate CA and met to bones. Pt takes oxycodone 1 tab Q4-6hrs for pain and had taken two tabs this morning but not effective. Pt appears to be in severe pain in L ribs/abd and c/o pain with facial grimacing. Pt currently getting oral medication for prostate CA treatment.
[2018-02-03 11:38] VITALS: BP 156/78; PULSE 94; RESP 20
--- NOTE | 2018-02-03 12:05 | PC.NURSE ---
1100 Late Entry- [id number] on R side chest accessed using aseptic technique and alexia blood while accessing the site with 20G 0.75 inch length Quintero needle. Pt tolerated well.
== END 2018-02-03 11:50 | disposition home or self-care (01) ==
PROVIDERS: Emergency Provider Emergency Medicine; PCP Family Medicine
DX: S22.32XA Fracture of one rib, left side, initial encounter for closed fracture (principal); D64.9 Anemia, unspecified; D72.829 Elevated white blood cell count, unspecified
CPT/HCPCS: 74176; 80048; 82962; 85025; 96361; 96374; 99283; 99284; J2270

== ENCOUNTER 2018-02-05 16:05 | Emergency (ER) | payer MEDICARE, OTHER, SELFPAY ==
[2018-02-05] VITALS (10 sets, daily range): BP systolic 134–186; BP diastolic 66–93; PULSE 96–110; RESP 14–23; TEMP 36.6; O2SAT 96–100; BMI 22.9
--- NOTE | 2018-02-05 16:40 | ED_ITS ---
HPI - Weakness <Carmine Farris, DO - Last Filed: 02/06/18 07:09> General Chief complaint: Weakness Stated complaint: FALL LOST CONTROL Time Seen by Provider: 02/05/18 16:14 Source: patient and family Mode of arrival: wheelchair Limitations: no limitations History of Present Illness HPI Narrative: Patient is an 82-year-old male with stage IV prostate cancer here for evaluation after he became very weak today and fell. I evaluated this patient in the emergency department 2 days ago after a fall and where he was diagnosed with a left-sided 8th rib fracture. Patient ambulated out of the emergency department at that time. His family states that since then he has continued to become more weak. They stated that today after sleeping in his chair overnight got up and had extreme weakness in bilateral lower extremities. He stated that he did fall forward. Did not hit his head. No loss of consciousness. He was not able to get up on his own. His had to call a neighbor to come over and help him. He continued to have lower extremity weakness and so they brought him into the emergency department for evaluation Related Data Home Medications Medication Instructions Recorded Confirmed insulin glargine [Basaglar KwikPen 1 dose SQ DIRECTED #0 03/25/17 01/19/18 U-100 Insulin] lisinopril 10 mg PO DAILY 08/13/17 01/19/18 metformin 500 mg PO DAILY 08/13/17 01/19/18 atorvastatin 40 mg PO BEDTIME 09/14/17 01/19/18 carvedilol 3.125 mg PO BID 09/14/17 01/19/18 insulin glargine [Lantus U-100 25 unit SUB-Q BEDTIME 09/14/17 01/19/18 Insulin] losartan 50 mg PO DAILY 09/14/17 01/19/18 tamsulosin [Flomax] 0.4 mg PO DAILY 09/25/17 01/19/18 enzalutamide [Xtandi] 160 mg PO DAILY 12/22/17 01/19/18 aspirin [Aspir-81] 81 mg PO DAILY 01/05/18 01/19/18 Previous Rx's Medication Instructions Recorded apixaban 2.5 mg PO BID #120 tab 12/22/17 oxycodone-acetaminophen [Percocet] 1 tab PO Q4-6H PRN #60 tab 02/03/18 Allergies Allergy/AdvReac Type Severity Reaction Status Date / Time No Known Drug Allergies Allergy Verified 02/05/18 16:07 Review of Systems <Carmine FarrisDO - Last Filed: 02/06/18 07:09> Constitutional Reports fatigue, Denies fever(s) and Reports lethargy ENT Ears, Nose, Mouth, and Throat: Denies vertigo, Denies dizziness and Denies disequilibrium Cardiovascular Denies chest pain, Denies diaphoresis, Denies syncope, Denies rapid heart rate, Denies palpitations and Denies dyspnea Respiratory Denies dyspnea Gastrointestinal Gastrointestinal: Denies abdominal pain, Denies change in bowel habits, Denies nausea and Denies vomiting Genitourinary Denies dysuria Musculoskeletal Reports abnormal gait, Reports back pain, Denies myalgias, Denies arthralgias, Denies muscle cramps, Reports muscle weakness and Denies numbness Integumentary/Breasts Denies lesions and Denies rash Neurologic Reports abnormal gait, Denies vertigo, Denies dizziness, Denies syncope, Denies numbness, Denies radicular pain, Denies paresthesias and Denies disequilibrium Endocrine Reports fatigue and Denies palpitations Hematologic/Lymphatic Comments: On apixaban Exam <Carmine Farris DO - Last Filed: 02/06/18 07:09> Initial Vital Signs Initial Vital Signs: Vital Signs Pulse Rate 102 H 02/05/18 16:07 Respiratory Rate 20 02/05/18 16:07 Blood Pressure 139/72 02/05/18 16:07 Pulse Oximetry 96 02/05/18 16:07 Const General: comfortable, well developed and No acute distress Orientation: alert, awake and oriented x3 HENNH Head: normal to inspection and normocephalic Chest Other: Continues to have tenderness over the left chest where he was tender 2 days ago consistent with his 8th rib fracture Resp Effort & Inspection: normal respiratory effort Auscultation: clear to auscultation bilaterally Cardio Rate: tachycardic Heart Sounds: no murmurs Pulses: radial pulses present GI Inspection: non-distended Palpation: soft and No tender Back/Spine/Pelvis Back: back tenderness (Left upper back) Skin Lesions: no lesions Rashes: no rashes Neuro General: alert, awake and oriented x3 Cranial Nerves: CN's II-XI intact bilaterally Sensory Exam: no sensory deficits noted Other: Patient with 5/5 strength right upper extremity. Patient with 3/5 strength left upper extremity. 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 Normal gas meter installer helper strength right upper extremity. Patient with 0/5 strength left lower extremity. 1/5 strength right lower extremity. Is able to dorsiflex and plantar flex. Unable to hold his legs up off the bed. Extrem Other: No gross deformities. Very mild swelling to the left ankle Psych Appearance: grossly normal and well kempt <Aayush Matos DO - Last Filed: 02/06/18 01:15> Initial Vital Signs Initial Vital Signs: Vital Signs Pulse Rate 102 H 02/05/18 16:07 Respiratory Rate 20 02/05/18 16:07 Blood Pressure 139/72 02/05/18 16:07 Pulse Oximetry 96 02/05/18 16:07 Course <Carmine Farris DO - Last Filed: 02/06/18 07:09> Orders Ordered: Discontinued Medications Hydrocodone Bitart/Acetaminophen ([place] 5/325) 2 tab PO NOW ONE Stop: 02/05/18 17:45 Last Admin: 02/05/18 18:05 Dose: 2 tab Sodium Chloride (Normal Saline 0.9%) 1,000 mls @ 1,000 mls/hr IV BOLUS ONE Stop: 02/05/18 20:32 Last Infusion: 02/05/18 21:36 Dose: 0 mls/hr Admin: 02/05/18 20:43 Dose: 1,000 mls/hr Vital Signs - 8 hr 02/05/18 23:30 02/06/18 00:00 02/06/18 00:30 Pulse Rate 97 H 98 H 94 H Respiratory Rate 18 18 19 Blood Pressure Blood Pressure [Right Arm] 143/93 H 149/76 H 140/64 Pulse Oximetry 98 97 97 02/06/18 01:22 Pulse Rate 95 H Respiratory Rate 18 Blood Pressure 142/68 H Blood Pressure [Right Arm] Pulse Oximetry 98 <Aayush Matos DO - Last Filed: 02/06/18 01:15> Orders Ordered: Discontinued Medications Hydrocodone Bitart/Acetaminophen ([place] 5/325) 2 tab PO NOW ONE Stop: 02/05/18 17:45 Last Admin: 02/05/18 18:05 Dose: 2 tab Sodium Chloride (Normal Saline 0.9%) 1,000 mls @ 1,000 mls/hr IV BOLUS ONE Stop: 02/05/18 20:32 Last Infusion: 02/05/18 21:36 Dose: 0 mls/hr Admin: 02/05/18 20:43 Dose: 1,000 mls/hr Reevaluation(s) Reevaluation #1: I received sign-out from Dr. Farris on this patient. I have performed an independent exam. Patient was seen 2 days ago and despite ongoing back pain was able to walk out without difficulty. Today he is unable to move his legs has decreased reflexes and on my exam no rectal tone. He had CT which demonstrates no new metastatic involvement. Consultations Consultation #1: First call to Dr. Medina (neurosurgery) whom is happy to accept patient, he has no recommendations regarding steroids. He requests transfer to [facility] ED. Dr. Bower is happy to accept Vital Signs - 8 hr 02/05/18 23:30 02/06/18 00:00 02/06/18 00:30 Pulse Rate 97 H 98 H 94 H Respiratory Rate 18 18 19 Blood Pressure Blood Pressure [Right Arm] 143/93 H 149/76 H 140/64 Pulse Oximetry 98 97 97 02/06/18 01:22 Pulse Rate 95 H Respiratory Rate 18 Blood Pressure 142/68 H Blood Pressure [Right Arm] Pulse Oximetry 98 MDM - Weakness <Carmine Farris, DO - Last Filed: 02/06/18 07:09> Lab Data Attestation: I reviewed the patient's lab results. Result diagrams: 02/05/18 16:35 02/05/18 16:35 Lab Results 02/05/18 02/05/18 02/05/18 Range/Units 16:35 16:35 16:35 WBC 18.5 H (4.5-11.0) X10^3/uL RBC 3.95 L (4.5-5.9) X10^6/uL Hgb 9.4 L (13.5-17.5) g/dL Hct 30.4 L (41-53) % MCV 76.9 L (80-100) fL MCH 23.7 L (26-34) PG MCHC 30.8 (30-36) % RDW 20.2 H (11.6-14.8) % Plt Count 371 (150-400) X10^3/uL Neut % (Auto) 85.4 H (50-75) % Lymph % (Auto) 6.2 L (25-40) % [place] % (Auto) 7.1 (3-14) % Eos % (Auto) 0.6 L (2-4) % Baso % (Auto) 0.7 (0-2) % Neut # (Auto) 26296 H (2455-0238) /uL RBC Morphology See below Poikilocytosis 1+ H Anisocytosis 1+ H PT (10.1-12.7) SECONDS INR (0.9-1.3) APTT (26.4-36.2) SECONDS Sodium 133 L (137-145) mmol/L Potassium 4.7 (3.4-5.1) mmol/L Chloride 97 L (98-107) mmol/L Carbon Dioxide 26 (22-32) mmol/L BUN 21 H (9-20) mg/dL Creatinine 0.90 (0.66-1.25) mg/dL Estimated GFR > 60.0 (>60) mL/min BUN/Creatinine Ratio 23.3 H (6-22) Glucose 265 H (80-110) mg/dL Lactate (0.7-2.1) mmol/L Calcium 8.2 L (8.4-10.2) mg/dL Troponin I < 0.012 (0.01-0.034) ng/mL Lipase < 10 L (23-300) U/L Procalcitonin (<0.5) ng/mL Blood Type A Positive Antibody Screen Negative 02/05/18 02/05/18 02/05/18 Range/Units 16:35 16:35 16:35 WBC (4.5-11.0) X10^3/uL RBC (4.5-5.9) X10^6/uL Hgb (13.5-17.5) g/dL Hct (41-53) % MCV (80-100) fL MCH (26-34) PG MCHC (30-36) % RDW (11.6-14.8) % Plt Count (150-400) X10^3/uL Neut % (Auto) (50-75) % Lymph % (Auto) (25-40) % [place] % (Auto) (3-14) % Eos % (Auto) (2-4) % Baso % (Auto) (0-2) % Neut # (Auto) (8418-0685) /uL RBC Morphology Poikilocytosis Anisocytosis PT 15.4 H (10.1-12.7) SECONDS INR 1.4 H (0.9-1.3) APTT 33 (26.4-36.2) SECONDS Sodium (137-145) mmol/L Potassium (3.4-5.1) mmol/L Chloride (98-107) mmol/L Carbon Dioxide (22-32) mmol/L BUN (9-20) mg/dL Creatinine (0.66-1.25) mg/dL Estimated GFR (>60) mL/min BUN/Creatinine Ratio (6-22) Glucose (80-110) mg/dL Lactate 1.2 (0.7-2.1) mmol/L Calcium (8.4-10.2) mg/dL Troponin I (0.01-0.034) ng/mL Lipase (23-300) U/L Procalcitonin 0.10 (<0.5) ng/mL Blood Type Antibody Screen Imaging Data CT scan - head: Radiologist's impression: PROCEDURE: CT HEAD/BRAIN WO CON INDICATIONS: new onset generalized weakness TECHNIQUE: Noncontrast 4.5 mm thick angled axial sections acquired from the foramen magnum to the vertex, with coronal and sagittal reformats. For radiation dose reduction, the following was used: automated exposure control, adjustment of mA and/or kV according to patient size. COMPARISON: None. FINDINGS: Image quality: Excellent. CSF spaces: Basal cisterns are patent. No extra-axial fluid collections. The ventricles are symmetric in size and shape. Brain: No intracranial bleeds or masses. There is cerebral volume loss for age , with resultant ventricular and sulcal prominence. There are periventricular and deep white matter chronic small vessel ischemic changes. There is intracranial internal carotid artery atherosclerosis. Skull and face: Calvarium and visualized facial bones appear intact, without suspicious lesions. Sinuses: Visualized sinuses and mastoids are clear. IMPRESSION: 1. No acute intracranial findings. 2. Findings likely associated with chronic microvascular ischemic changes. Dictated by: Candy Rowell M.D. on 02/05/2018 at 16:58 Approved by: Candy Rowell M.D. on 02/05/2018 at 17:00 Chest x-ray: Radiologist's impression: PROCEDURE: XR CHEST 1V INDICATIONS: Elevated white count /tachycardia concern for pneumonia TECHNIQUE: One view of the chest was acquired. COMPARISON: [facility], CT, CT KIDNEY URETER BLADDER (KUB), 02/03/2018, 10 :07. [facility], CT, CT CHEST ABD PEL W CON, 12/03/2017, 10:32. [facility] , CR, XR CHEST 1V, 09/17/2017, 18:04. FINDINGS: Surgical changes and devices: There is a stable right-sided chest port. An AICD is seen. Lungs and pleura: No pleural effusions or pneumothorax. Mild, streaky opacities are seen at the lung bases. There is stable elevation the right hemidiaphragm. Mediastinum: Mediastinal contours appear normal. Heart size is normal. Bones and chest wall: No suspicious bony lesions. Age-appropriate bony degenerative changes are seen. Overlying soft tissues appear unremarkable. IMPRESSION: Likely atelectasis is seen at the lung bases. Differential diagnosis includes mild/early infiltrate. As clinically appropriate, a short-term followup chest series (with PA and lateral views) performed in deep inspiration is suggested for further evaluation. Postoperative and degenerative changes are seen. Dictated by: Gael Lopez M.D. on 02/05/2018 at 17:00 Approved by: Gael Lopez M.D. on 02/05/2018 at 17:02 [facility] Narrative Medical decision making narrative: Patient is alert oriented x3. Is not in distress. Does have left upper back pain but according to his this is not new in his back pain seems to ?move ?all over his back. He continues to have left-sided chest pain but this is consistent with his 8th rib fracture that he was diagnosed with 2 days ago. Chest x-ray shows no signs of pneumonia. Patient was tachycardic. Has an elevated white blood cell count but this has been worsening over the past 2 weeks. He is not currently on steroids. Has yet to provide a urine however there is no other signs of infection. He is significantly more weak compared to my evaluation of him 2 days ago. He is unable to lift his legs up off the bed. He denies any chest pain or shortness of breath. Patient is unable to obtain an MRI of his back secondary to a defibrillator. CT scan of his thoracic lumbar spine was ordered to evaluate for possible metastasis. Patient denies any bowel or bladder symptoms. Care turned over to night provider [id number] to follow up with results of CT scan. <Aayush Matos DO - Last Filed: 02/06/18 01:15> Lab Data Lab Results 02/05/18 02/05/18 02/05/18 Range/Units 16:35 16:35 16:35 WBC 18.5 H (4.5-11.0) X10^3/uL RBC 3.95 L (4.5-5.9) X10^6/uL Hgb 9.4 L (13.5-17.5) g/dL Hct 30.4 L (41-53) % MCV 76.9 L (80-100) fL MCH 23.7 L (26-34) PG MCHC 30.8 (30-36) % RDW 20.2 H (11.6-14.8) % Plt Count 371 (150-400) X10^3/uL Neut % (Auto) 85.4 H (50-75) % Lymph % (Auto) 6.2 L (25-40) % [place] % (Auto) 7.1 (3-14) % Eos % (Auto) 0.6 L (2-4) % Baso % (Auto) 0.7 (0-2) % Neut # (Auto) 80144 H (6871-2011) /uL RBC Morphology See below Poikilocytosis 1+ H Anisocytosis 1+ H PT (10.1-12.7) SECONDS INR (0.9-1.3) APTT (26.4-36.2) SECONDS Sodium 133 L (137-145) mmol/L Potassium 4.7 (3.4-5.1) mmol/L Chloride 97 L (98-107) mmol/L Carbon Dioxide 26 (22-32) mmol/L BUN 21 H (9-20) mg/dL Creatinine 0.90 (0.66-1.25) mg/dL Estimated GFR > 60.0 (>60) mL/min BUN/Creatinine Ratio 23.3 H (6-22) Glucose 265 H (80-110) mg/dL Lactate (0.7-2.1) mmol/L Calcium 8.2 L (8.4-10.2) mg/dL Troponin I < 0.012 (0.01-0.034) ng/mL Lipase < 10 L (23-300) U/L Procalcitonin (<0.5) ng/mL Blood Type A Positive Antibody Screen Negative 02/05/18 02/05/18 02/05/18 Range/Units 16:35 16:35 16:35 WBC (4.5-11.0) X10^3/uL RBC (4.5-5.9) X10^6/uL Hgb (13.5-17.5) g/dL Hct (41-53) % MCV (80-100) fL MCH (26-34) PG MCHC (30-36) % RDW (11.6-14.8) % Plt Count (150-400) X10^3/uL Neut % (Auto) (50-75) % Lymph % (Auto) (25-40) % [place] % (Auto) (3-14) % Eos % (Auto) (2-4) % Baso % (Auto) (0-2) % Neut # (Auto) (2899-6422) /uL RBC Morphology Poikilocytosis Anisocytosis PT 15.4 H (10.1-12.7) SECONDS INR 1.4 H (0.9-1.3) APTT 33 (26.4-36.2) SECONDS Sodium (137-145) mmol/L Potassium (3.4-5.1) mmol/L Chloride (98-107) mmol/L Carbon Dioxide (22-32) mmol/L BUN (9-20) mg/dL Creatinine (0.66-1.25) mg/dL Estimated GFR (>60) mL/min BUN/Creatinine Ratio (6-22) Glucose (80-110) mg/dL Lactate 1.2 (0.7-2.1) mmol/L Calcium (8.4-10.2) mg/dL Troponin I (0.01-0.034) ng/mL Lipase (23-300) U/L Procalcitonin 0.10 (<0.5) ng/mL Blood Type Antibody Screen Imaging Data CT Thoracic/Lumbar: Radiologist's impression: [address] [address] [address] Scan Report Signed Patient: Seth Khanna TMR#: [id number] : 7Acct:[id number] Age/Sex: 82 / MDate of Service: 02/05/18 Loc: ED Accession Number: [id number] Procedure: CT thoracic spine wo con Ordering Provider: Carmine Farris D.O. PROCEDURE: CT THORACIC SPINE WO CON INDICATIONS: Concern for bony Mets from prostate cancer TECHNIQUE: Noncontrast 3 mm thick sections acquired through the region of interest in the thoracic spine. Sagittal and coronal reformats were then constructed. For radiation dose reduction, the following was used: automated exposure control. COMPARISON: [facility], CT, CT CHEST ABD PEL W CON, 12/03/2017, 10:32. FINDINGS: Image quality: Excellent. Bones: There is mild diffuse thoracic kyphosis. No acute vertebral body compression fractures. Multiple sclerotic bony metastases are present, as seen by B9 0.[address] examination. Central spinal canal is of normal overall caliber. Soft tissues: No paravertebral masses or hematomas. Visualized posteromedial lungs appear clear. Scarring within the right lung base is unchanged. Cardiomegaly is present, as before. Mild left basilar atelectasis versus pneumonia is present. IMPRESSION: Severe diffuse bony metastases, as previously documented on the 12.03.17 CT examination. No fracture. Dictated by: Maribell Curran M.D. on 02/05/2018 at 20:27 Approved by: Maribell Curran M.D. on 02/05/2018 at 20:[address] [address] [address] Scan Report Signed Patient: Seth Khanna TMR#: [id number] : 7Acct:[id number] Age/Sex: 82 / MDate of Service: 02/05/18 Loc: ED Accession Number: [id number] Procedure: CT lumbar spine wo con Ordering Provider: Carmine Farris D.O. PROCEDURE: CT LUMBAR SPINE WO CON INDICATIONS: Concern for bony Mets from prostate cancer TECHNIQUE: Noncontrast 3 mm thick sections acquired from the T12 level to the sacrum. Sagittal and coronal reformats were constructed. For radiation dose reduction, the following was used: automated exposure control. COMPARISON: [facility], CR, XR LUMBAR SPINE 2-3V, 01/05/2018, 11:04. [facility], CT, CT CHEST ABD PEL W CON, 12/03/2017, 10:32. [facility], CT, CT KIDNEY URETER BLADDER (KUB), 02/03/2018, 10:07. FINDINGS: Image quality: Excellent. Bones: There is normal bony alignment. No acute vertebral body compression fractures. No change in chronic wedging of L5. Severe diffuse bony metastatic disease is present, as before. Central spinal caliber is of normal overall caliber. No pars defects. Soft tissues: No retroperitoneal masses or hematomas. Visualized aorta is normal in caliber. IMPRESSION: No change in severe diffuse bony metastatic disease, as previously documented on the 02.03.18 CT examination from 2 days prior. No acute fracture. Dictated by: Maribell Curran M.D. on 02/05/2018 at 20:30 Approved by: Maribell Curran M.D. on 02/05/2018 at 20:32 MDM Narrative Medical decision making narrative: 82M with metastatic prostate CA and known Lumbar/Thoracic involvement presents with new B/L LE weakness resulting in fall today. He has no rectal tone and decreased reflexes. He was seen by same ED provider earlier today whom saw him 2 days ago after a fall. He was able to walk out of the ED after that event. Patient cannot get MRI at our facility due to pacer/AICD. Transfer to [facility] for further evaluation and stabilization of his condition and possible neurosurgical intervention Discharge Plan Departure Patient Disposition: [facility] Clinical Impression: Cauda equina syndrome Discharge Date/Time: 02/06/18 01:22 Interventions: ED Discharge Assessment Last Done: 02/06/18 01:22 Prescriptions: No Action insulin glargine [Basaglar KwikPen U-100 Insulin] 100 UNIT/1 ML insulin pen 1 dose SQ DIRECTED Qty: 0 RF: 0 losartan 50 mg Tablet 50 mg PO DAILY RF: 0 atorvastatin 40 mg Tablet 40 mg PO BEDTIME RF: 0 carvedilol 25 mg Tablet 3.125 mg PO BID RF: 0 insulin glargine [Lantus U-100 Insulin] 100 unit/mL Solution 25 unit SUB-Q BEDTIME RF: 0 oxycodone-acetaminophen [Percocet] 5-325 mg Tablet 1 tab PO Q4-6H PRN (Reason: cancer pain) Qty: 60 RF: 0 tamsulosin [Flomax] 0.4 mg Capsule,Extended Release 24hr 0.4 mg PO DAILY RF: 0 enzalutamide [Xtandi] 40 mg Capsule 160 mg PO DAILY RF: 0 apixaban 2.5 mg Tablet 2.5 mg PO BID Qty: 120 RF: 0 aspirin [Aspir-81] 81 mg Tablet,Delayed Release (Dr/Ec) 81 mg PO DAILY RF: 0 lisinopril 10 mg Tablet 10 mg PO DAILY RF: 0 metformin 500 mg Tablet Extended Release 24 Hr 500 mg PO DAILY RF: 0
[2018-02-05 16:46] LABS: White Blood Cell Count 18.5 X10^3/uL (4.5-11.0)
[2018-02-05 16:52] LABS: INR 1.4 (0.9-1.3); Prothrombin Time 15.4 SECONDS (10.1-12.7)
[2018-02-05 16:53] LABS: Add Manual Diff / Slide Review NO; Basophils Percent Auto 0.7 % (0-2); Eosinophils Percent Auto 0.6 % (2-4); Hematocrit 30.4 % (41-53); Hemoglobin 9.4 g/dL (13.5-17.5); Lymphocytes Percent Auto 6.2 % (25-40); Mean Corpuscular HGB Conc 30.8 % (30-36); Mean Corpuscular Hemoglobin 23.7 PG (26-34); Mean Corpuscular Volume 76.9 fL (80-100); Monocytes Percent Auto 7.1 % (3-14); Neutrophils Absolute Auto 15800 /uL (3000-5900); Neutrophils Percent Auto 85.4 % (50-75); Platelet Count 371 X10^3/uL (150-400); Red Blood Cell Count 3.95 X10^6/uL (4.5-5.9); Red Cell Distribution Width 20.2 % (11.6-14.8)
[2018-02-05 16:55] LABS: PTT Partial Thromboplastin Tim 33 SECONDS (26.4-36.2)
[2018-02-05 16:56] LABS: Lactate (Lactic Acid) 1.2 mmol/L (0.7-2.1)
[2018-02-05 16:57] LABS: BUN Creatinine Ratio 23.3 (6-22); Blood Urea Nitrogen 21 mg/dL (9-20); Calcium 8.2 mg/dL (8.4-10.2); Carbon Dioxide 26 mmol/L (22-32); Chloride 97 mmol/L (98-107); Estimated Glomerular Filt Rate > 60.0 mL/min (>60); Glucose 265 mg/dL (80-110); HEMOLYSIS < 15 (0-50); Potassium 4.7 mmol/L (3.4-5.1); Sodium 133 mmol/L (137-145)
[2018-02-05 17:01] LABS: Lipase < 10 U/L (23-300)
[2018-02-05 17:09] LABS: Troponin I < 0.012 ng/mL (0.01-0.034)
[2018-02-05 17:14] LABS: Anisocytosis 1+; Poikilocytosis 1+
--- NOTE | 2018-02-05 17:49 | DI.RAD.S_ITS ---
PROCEDURE: XR CHEST 1V INDICATIONS: Elevated white count /tachycardia concern for pneumonia TECHNIQUE: One view of the chest was acquired. COMPARISON: [facility], CT, CT KIDNEY URETER BLADDER (KUB), 02/03/2018, 10:07. [facility], CT, CT CHEST ABD PEL W CON, 12/03/2017, 10:32. [facility], CR, XR CHEST 1V, 09/17/2017, 18:04. FINDINGS: Surgical changes and devices: There is a stable right-sided chest port. An AICD is seen. Lungs and pleura: No pleural effusions or pneumothorax. Mild, streaky opacities are seen at the lung bases. There is stable elevation the right hemidiaphragm. Mediastinum: Mediastinal contours appear normal. Heart size is normal. Bones and chest wall: No suspicious bony lesions. Age-appropriate bony degenerative changes are seen. Overlying soft tissues appear unremarkable. IMPRESSION: Likely atelectasis is seen at the lung bases. Differential diagnosis includes mild/early infiltrate. As clinically appropriate, a short-term followup chest series (with PA and lateral views) performed in deep inspiration is suggested for further evaluation. Postoperative and degenerative changes are seen. Dictated by: Gael Lopez M.D. on 02/05/2018 at 17:00 Approved by: Gael Lopez M.D. on 02/05/2018 at 17:02
[2018-02-05] MEDS: HYDROCODONE/ACET 5/325 TABLET 2 TAB PO (18:05)
--- NOTE | 2018-02-05 19:33 | DI.CT.S_ITS ---
PROCEDURE: CT THORACIC SPINE WO CON INDICATIONS: Concern for bony Mets from prostate cancer TECHNIQUE: Noncontrast 3 mm thick sections acquired through the region of interest in the thoracic spine. Sagittal and coronal reformats were then constructed. For radiation dose reduction, the following was used: automated exposure control. COMPARISON: [facility], CT, CT CHEST ABD PEL W CON, 12/03/2017, 10:32. FINDINGS: Image quality: Excellent. Bones: There is mild diffuse thoracic kyphosis. No acute vertebral body compression fractures. Multiple sclerotic bony metastases are present, as seen by B9 0.[address] examination. Central spinal canal is of normal overall caliber. Soft tissues: No paravertebral masses or hematomas. Visualized posteromedial lungs appear clear. Scarring within the right lung base is unchanged. Cardiomegaly is present, as before. Mild left basilar atelectasis versus pneumonia is present. IMPRESSION: Severe diffuse bony metastases, as previously documented on the 12.03.17 CT examination. No fracture. Dictated by: Maribell Curran M.D. on 02/05/2018 at 20:27 Approved by: Maribell Curran M.D. on 02/05/2018 at 20:29
--- NOTE | 2018-02-05 19:33 | DI.CT.S_ITS ---
PROCEDURE: CT LUMBAR SPINE WO CON INDICATIONS: Concern for bony Mets from prostate cancer TECHNIQUE: Noncontrast 3 mm thick sections acquired from the T12 level to the sacrum. Sagittal and coronal reformats were constructed. For radiation dose reduction, the following was used: automated exposure control. COMPARISON: [facility], CR, XR LUMBAR SPINE 2-3V, 01/05/2018, 11:04. [facility], CT, CT CHEST ABD PEL W CON, 12/03/2017, 10:32. [facility], CT, CT KIDNEY URETER BLADDER (KUB), 02/03/2018, 10:07. FINDINGS: Image quality: Excellent. Bones: There is normal bony alignment. No acute vertebral body compression fractures. No change in chronic wedging of L5. Severe diffuse bony metastatic disease is present, as before. Central spinal caliber is of normal overall caliber. No pars defects. Soft tissues: No retroperitoneal masses or hematomas. Visualized aorta is normal in caliber. IMPRESSION: No change in severe diffuse bony metastatic disease, as previously documented on the 02.03.18 CT examination from 2 days prior. No acute fracture. Dictated by: Maribell Curran M.D. on 02/05/2018 at 20:30 Approved by: Maribell Curran M.D. on 02/05/2018 at 20:32
--- NOTE | 2018-02-05 20:16 | PC.NURSE ---
Bilateral leg unable to lift off the bed, able to wiggle toes which is different from pt's normal. Pt had fall this am due to gave out. Denies injury from the fall.
[2018-02-05] MEDS: SODIUM CHLORIDE 0.9% 1,000 ML 1000 ML IV (20:43)
[2018-02-06] VITALS: BP 149/76; PULSE 98; RESP 18; O2SAT 97
[2018-02-06 00:30] VITALS: BP 140/64; PULSE 94; RESP 19; O2SAT 97
--- NOTE | 2018-02-06 01:21 | PC.NURSE ---
Pt able to wiggle toes but unable flex or extend bilateral foot against resistance. Pt reports decrease in sensation compared to 2000 tonight.
[2018-02-06 01:22] VITALS: BP 142/68; PULSE 95; RESP 18; O2SAT 98
== END 2018-02-06 01:22 | disposition short-term general hospital (02) ==
PROVIDERS: Emergency Medicine; Emergency Provider Emergency Medicine; PCP Family Medicine
DX: G83.4 Cauda equina syndrome (principal); R53.1 Weakness
CPT/HCPCS: 36415; 36591; 70450; 71045; 72128; 72131; 80048; 83605; 83690; 84145; 84484; 85025; 85610; 85730; 86850; 86900; 86901; 87040; 93005; 96360; 99285